=== PATIENT | female | born 1975 | race Caucasian/White ===

== ENCOUNTER 2021-09-15 07:08 | Outpatient (CLI) | payer OTHER, SELFPAY ==
--- NOTE | 2021-09-15 08:13 | W.ANESCHARGE ---
Anesthesia Charges Start Date/Time Anesthesia Start Date: 09/15/21 Anesthesia Start Time: 07:45 Stop Date/Time Anesthesia Stop Date: 09/15/21 Anesthesia Stop Time: 08:10 Summary Emergency: No
== END 2021-09-15 07:09 | disposition home or self-care (01) ==
LOC: OP CLINIC 07:09
PROVIDERS: PCP Physician Assistant Medical; Visit Provider Internal Medicine
DX: Z12.11 Encounter for screening for malignant neoplasm of colon (principal)
CPT/HCPCS: 45378; 812; J2704

== ENCOUNTER 2021-11-24 12:32 | Outpatient (REF) | payer OTHER, SELFPAY ==
[2021-11-24 14:01] LABS: Chloride* 105 mmol/L (96-114)
[2021-11-24 14:02] LABS: Potassium* 4.3 mmol/L (3.6-5.1); Sodium* 136 mmol/L (135-149)
[2021-11-24 14:04] LABS: Carbon Dioxide* 28 mmol/L (20-32); Cholesterol* 215 mg/dL (90-199)
[2021-11-24 14:05] LABS: Alanine Aminotransferase* 15 U/L (4-35); Alkaline Phosphatase* 61 U/L (40-150); Aspartate Amino Transferase* 25 U/L (12-35); Basophils Absolute Auto 0.04 K/uL (0.00-0.30); Basophils Percent Auto 0.9 % (0.0-3.0); Bilirubin Total* 0.4 mg/dL (0.1-1.5); Blood Urea Nitrogen* 15 mg/dL (5-24); Calcium* 9.6 mg/dL (8.4-10.6); Creatinine* 0.7 mg/dL (0.5-1.5); Eosinophils Absolute Auto 0.25 K/uL (0.00-0.50); Eosinophils Percent Auto 5.5 % (0.0-7.0); Estimated Glomerular Filt Rate 108 ml/min; Glucose* 104 mg/dL (60-115); Hematocrit 40.2 % (33.0-51.0); Hemoglobin* 13.4 gm/dL (12.0-16.0); Lymphocytes Absolute Auto 1.68 K/uL (0.90-2.90); Lymphocytes Percent Auto 36.8 % (20-44); Mean Corpuscular HGB Conc 33 gm/dL (32-36); Mean Corpuscular Hemoglobin 29 pg (26-34); Mean Corpuscular Volume 88 fL (80-100); Monocytes Percent Auto 7.7 % (0.0-11.0); Neutrophils Absolute Auto 2.24 K/uL (1.7-7.0); Neutrophils Percent Auto 49.1 % (42.0-72.0); Platelet Count* 262 K/uL (140-440); RDW Coefficient of Variation % 13.2 % (11.5-15.5); Red Blood Count 4.59 m/uL (4.00-5.20); Total Protein* 6.5 g/dL (6.0-8.3); Triglycerides* 69 mg/dL (40-149); White Blood Count* 4.56 K/uL (4.50-11.00)
[2021-11-24 14:06] LABS: HDL Cholesterol* 59 mg/dL (>=50); LDL Cholesterol Calculated 142 mg/dL (<100)
[2021-11-24 14:07] LABS: Slide Review Reflex No
[2021-11-24 14:12] LABS: Hemoglobin A1C* 5.31 % (0-5.6)
[2021-11-24 14:23] LABS: Free T4 Free Thyroxine* 0.84 ng/dL (0.70-1.85); Vitamin D 25 Hydroxy* 46 ng/mL (30-80)
[2021-11-24 14:36] LABS: Thyroid Stimulating Hormone* 0.849 uIU/mL (0.270-4.20)
== END 2021-11-24 12:33 | disposition home or self-care (01) ==
LOC: NPINS 12:32
PROVIDERS: PCP Physician Assistant Medical; Visit Provider Nurse Practitioner Psychiatric/Mental Health
DX: D64.9 Anemia, unspecified (principal); R53.83 Other fatigue; R23.2 Flushing; R32 Unspecified urinary incontinence; F41.9 Anxiety disorder, unspecified
CPT/HCPCS: 80053; 80061; 82306; 83036; 84439; 84443; 85025

== ENCOUNTER 2023-05-29 08:35 | Outpatient (CLI) | payer OTHER, SELFPAY ==
--- NOTE | 2023-05-29 08:45 | MM_ITS ---
Patient: AURELIA HERNANDEZ Facility:?[facility] Patient ID:?[id number] Site Patient ID:?[id number]. Site :?[id number] Study:?XRay-Breast Bilateral 3D W/CAD-05/29/2023 8:59:14 AM Ordering Physician:?Perla Ramos Final Report: BILATERAL SCREENING MAMMOGRAM WITH COMPUTER-AIDED DETECTION AND TOMOSYNTHESIS TECHNIQUE: CC and MLO views were obtained. These mammographic images have been obtained using full-field digital technique. These mammographic images were interpreted with the benefit of computer-aided detection. Breast Tomosynthesis was used in this interpretation. COMPARISON FILM: 09/02/20, 08/29/20, 03/05/19. FINDINGS: There are scattered areas of fibroglandular density IMPRESSION: There is no radiographic evidence for malignancy. ASSESSMENT: BI-RADS Category 1: Negative RECOMMENDATION: Routine screening mammogram in 1 year. A lay language report of this examination will be provided to the patient. Cb Hart M.D. Diagnostic Radiologist [email or web address] Transcribed: 12:04 p.an couch/Dictated by: Cb Hart MD @ 06/10/2023 9:56:00 AM Signed by:?Cb Hart MD @06/10/2023 12:12:22 PM (Electronic Signature)
== END 2023-05-29 08:36 | disposition home or self-care (01) ==
LOC: MAMMO 08:37
PROVIDERS: PCP Physician Assistant Medical; Visit Provider Physician Assistant Medical
DX: Z12.31 Encounter for screening mammogram for malignant neoplasm of breast (principal); Z11.3 Encounter for screening for infections with a predominantly sexual mode of transmission
CPT/HCPCS: 77063; 77067; 87491; 87591

== ENCOUNTER 2023-05-31 09:03 | Outpatient (CLI) | payer OTHER, SELFPAY | END 2023-05-31 09:04 | disposition home or self-care (01) | LOC: NFLDREF 13:23 | PROVIDERS: PCP Physician Assistant Medical; Referring Provider Physician Assistant Medical; Visit Provider Physician Assistant Medical | DX: E78.5 Hyperlipidemia, unspecified (principal); R53.83 Other fatigue; Z11.59 Encounter for screening for other viral diseases; Z13.228 Encounter for screening for other metabolic disorders; Z13.29 Encounter for screening for other suspected endocrine disorder; Z13.21 Encounter for screening for nutritional disorder | CPT/HCPCS: 80053; 80061; 82306; 82533; 82728; 84443; 86703; 86803 ==

== ENCOUNTER 2024-01-07 08:24 | Outpatient (CLI) | payer OTHER, SELFPAY | END 2024-01-07 08:25 | disposition home or self-care (01) | LOC: NFLDREF 01-09 10:58 | PROVIDERS: PCP Physician Assistant Medical; Referring Provider Physician Assistant Medical; Visit Provider Physician Assistant Medical | DX: N95.1 Menopausal and female climacteric states (principal); E55.9 Vitamin D deficiency, unspecified; Z78.9 Other specified health status | CPT/HCPCS: 82306; 82533 ==

== ENCOUNTER 2024-01-15 08:02 | Outpatient (CLI) | payer OTHER, SELFPAY ==
--- NOTE | 2024-01-15 08:15 | CRLHL7_ITS ---
For Patients: As a result of the Century Cures Act, medical imaging exams and procedure reports are released immediately into your electronic medical record. You may view this report before your referring provider. If you have questions, please contact your health care provider. INDICATION: Dizziness and giddiness. Evaluate for optic neuritis. TECHNIQUE: Brain scanned sagittal T1 axial FLAIR T2 diffusion-weighted and gadolinium enhanced axial T1 weighted images. Additional thin section axial and coronal T1-T2 stir and gadolinium enhanced fat saturated T1 weighted sequences are obtained through the orbits. 14 cc of Dotarem contrast utilized. COMPARISON: MRI brain with and without contrast dated 01/06/2010. FINDINGS: MRI brain: The lateral, 3rd and 4th ventricles are normal in size and shape. There is no evidence of recent ischemic infarction. There are no areas of diffusion restriction. There is no evidence of intracranial hemorrhage. There are no periventricular white matter lesions to suggest demyelinating disease. The brainstem and cerebellum appear normal. There are no enhancing intra-axial or extra-axial lesions. Paranasal sinuses and mastoid air cells are clear as visualized. MRI orbits: Thin section images show normal symmetric appearance of the orbital globes. The intraorbital portions of the optic nerves, optic chiasm, proximal optic tracts appear normal in signal intensity and morphology. No pathologic optic nerve enhancement seen. Orbital fat planes appear normal. Extraocular muscles normal. Cavernous sinus appears normal bilaterally. IMPRESSION: 1. Negative MRI brain. No evidence of acute infarction, intracranial hemorrhage, mass or cerebral demyelination. 2. Negative MRI exam of the orbits. No findings to suggest optic neuritis at this time. Dictated by Jose Luis Han MD @ 01/17/2024 6:03:02 AM (Electronically Signed)
== END 2024-01-15 08:03 | disposition home or self-care (01) ==
LOC: MRI 08:03
PROVIDERS: PCP Physician Assistant Medical; Visit Provider Physician Assistant Medical
DX: R42 Dizziness and giddiness (principal); R51.9 Headache, unspecified; G89.29 Other chronic pain; H53.9 Unspecified visual disturbance
CPT/HCPCS: 70543; A9575

== ENCOUNTER 2024-07-16 16:36 | Outpatient (CLI) | payer OTHER, SELFPAY ==
--- NOTE | 2024-07-16 16:45 | CRLHL7_ITS ---
For Patients: As a result of the Century Cures Act, medical imaging exams and procedure reports are released immediately into your electronic medical record. You may view this report before your referring provider. If you have questions, please contact your health care provider. Indication: CHRONIC SINUSITIS, HEADACHES SINCE BROKEN NOSE Technique: Performed without IV contrast Comparison: MRI 01/15/2024 Findings: Frontal sinuses: Clear. Ethmoid sinuses: Trace mucosal thickening noted with partial opacification of 1 of the right-sided ethmoid air cells. Maxillary sinuses: Trace mucosal thickening bilaterally involving the inferior aspects. The maxillary sinus drainage pathways are patent on both sides. Sphenoid sinuses: Clear, including both sphenoethmoidal recesses. Nasal Cavity: Leftward curvature of the nasal septum. Normal turbinates with the exception of mild paradoxical turn of the middle turbinates anteriorly. No vikram bullosa. Left-sided nasal septal spur. No TMJ abnormalities identified. The visualized portions of the orbits, intracranial contents and upper soft tissue neck are grossly negative. Normal alignment of nasal bones with slight offset on the left. Impression: 1. Trace bilateral ethmoid and maxillary sinus disease. 2. Leftward deviation of the nasal septum with left-sided nasal septal spur. 3. Old nondisplaced left nasal fracture. Please note that all CT scans at this facility use dose modulation, iterative reconstruction, and/or weight-based dosing when appropriate to reduce radiation dose to as low as reasonably achievable. Dictated by Cb Hart MD @ 07/17/2024 12:29:02 PM (Electronically Signed)
== END 2024-07-16 16:37 | disposition home or self-care (01) ==
LOC: CT 16:37
PROVIDERS: PCP Physician Assistant Medical; Visit Provider Otolaryngology
DX: J32.9 Chronic sinusitis, unspecified (principal); J32.0 Chronic maxillary sinusitis; J32.2 Chronic ethmoidal sinusitis; R51.9 Headache, unspecified; J34.2 Deviated nasal septum; S02.2XXS Fracture of nasal bones, sequela
CPT/HCPCS: 70486

== ENCOUNTER 2024-09-14 09:56 | Outpatient (CLI) | payer OTHER, SELFPAY | END 2024-09-14 09:57 | disposition home or self-care (01) | PROVIDERS: PCP Physician Assistant Medical; Visit Provider Physician Assistant Medical | DX: D64.9 Anemia, unspecified (principal); E78.5 Hyperlipidemia, unspecified; Z01.818 Encounter for other preprocedural examination | CPT/HCPCS: 80061; 82306 ==

== ENCOUNTER 2024-09-18 10:15 | Day surgery (SDC) | payer OTHER, SELFPAY ==
[2024-09-18] VITALS (21 sets, daily range): BP systolic 113–140; BP diastolic 82–98; PULSE 64–92; RESP 14–16; TEMP 36.1–36.6; O2SAT 96–99; BMI 25.2
[2024-09-18] MEDS: LACTATED RINGERS 1000 ML 1,000 ML 100 ML IV (10:20)
[2024-09-18 10:32] LABS: Ur HCG Qualitative* Negative (Negative)
[2024-09-18] MEDS: SODIUM CHLORIDE 0.9 % (FLUSH) 10 ML SYRINGE IVF (11:00)
[2024-09-18] MEDS: OXYMETAZOLINE 0.05% NASAL SPRAY 2 SPRAY NOSTRIL-B (12:07)
[2024-09-18] MEDS: BUPIVACAINE 0.5%/EPINEPHRINE 0.9 MG (30.9 ML) INJECTION (12:15)
[2024-09-18] MEDS: AYR SALINE NASAL GEL 1 APPLIC NOSTRIL-B (12:17)
[2024-09-18] MEDS: MUPIROCIN 1 GM PACKET 1 APPLIC TOPICAL (12:27)
--- NOTE | 2024-09-18 12:31 | P.ENTPROC_ITS ---
Procedure Note Date of procedure: 09/18/24 Procedure: Preop diagnosis nasal obstruction nasal headache deviated septum right middle inferior turbinate hypertrophy Postop diagnosis same Procedure nasal septoplasty, submucous partial resection right inferior turbinate Under general trach anesthesia patient was prepped draped usual fashion nose decongested injected. A stab incision was made anterior the right inferior turbinate a tunnel created with a Lori dissector. The vikram bone was outfractured and a conservative anterior submucous resection performed. The Coblation Wand was used for hemostasis and to cauterize intramurally along the inferior 10% The right middle turbinate was crushed with the Elrosa forceps The right marilyn-transfixion incision was made and left anterior and posterior tunnels were created. A vertical incision was made just anterior to the bone and a right posterior tunnel created. The posterior area 4 5 impaction was resected. A large piece of bone was trimmed returned to intraseptal space. The anterior septum was simply moved to midline. The hemitransfixion was closed with 2 4-0 chromic sutures, silastic stents were secured with 3-0 nylon, Merocel packing was placed above the stents on each side. The patient procedure well was taken recovery in satisfactory condition. Blood loss was less than 10 mL. Surgeon: Adama Kearney MD
--- NOTE | 2024-09-18 12:41 | P.ANES_ITS ---
Anesthesia Charges Start Date/Time Anesthesia Start Date: 09/18/24 Anesthesia Start Time: 12:02 Stop Date/Time Anesthesia Stop Date: 09/18/24 Anesthesia Stop Time: 12:40 Coding CPT Codes CPT Codes: ANESTH NOSE/SINUS SURGERY - 14246 ([id number]) P2 - PATIENT W/MILD SYST DISEASE, QK - RN BIRTHING 2-4 CNCRNT ANES PROC, QX - SENIOR NETWORK SECURITY ENGINEER SVC W/ MD MED DIRECTION
--- NOTE | 2024-09-18 12:41 | W.ANESCHARGE ---
Anesthesia Charges Start Date/Time Anesthesia Start Date: 09/18/24 Anesthesia Start Time: 12:02 Stop Date/Time Anesthesia Stop Date: 09/18/24 Anesthesia Stop Time: 12:40 Coding CPT Codes CPT Codes: ANESTH NOSE/SINUS SURGERY - 11487 ([id number]) P2 - PATIENT W/MILD SYST DISEASE, QK - LEASE ANALYST 2-4 CNCRNT ANES PROC, QX - SHOOTER'S HELPER SVC W/ MD MED DIRECTION
--- NOTE | 2024-09-18 12:46 | P.ANES_ITS ---
Anesthesia Charges Start Date/Time Anesthesia Start Date: 09/18/24 Anesthesia Start Time: 12:02 Stop Date/Time Anesthesia Stop Date: 09/18/24 Anesthesia Stop Time: 12:40 Coding CPT Codes CPT Codes: ANESTH NOSE/SINUS SURGERY - 84746 ([id number]) QK - MANAGER STEEL 2-4 CNCRNT ANES PROC, QX - DIRECTOR EQUIPMENT SVC W/ MD MED DIRECTION, P2 - PATIENT W/MILD SYST DISEASE
--- NOTE | 2024-09-18 12:46 | W.ANESCHARGE ---
Anesthesia Charges Start Date/Time Anesthesia Start Date: 09/18/24 Anesthesia Start Time: 12:02 Stop Date/Time Anesthesia Stop Date: 09/18/24 Anesthesia Stop Time: 12:40 Coding CPT Codes CPT Codes: ANESTH NOSE/SINUS SURGERY - 18413 ([id number]) QK - CHANNEL LIP STIFFENER INSOLES 2-4 CNCRNT ANES PROC, QX - CERTIFIED TRAVEL COUNSELOR SVC W/ MD MED DIRECTION, P2 - PATIENT W/MILD SYST DISEASE
--- NOTE | 2024-09-18 12:56 | SUR.PHASEI ---
patient noted to have headache, burning of bilateral eyes, red rash on eyes, lips and forehead. NUCLEAR MEDICINE OFFICERHomar notified and gave verbal order for 25mg of Benadryl and to monitor patient. vitals stable.
[2024-09-18] MEDS: ACETAMINOPHEN INJ 1,000 MG/100 ML VIAL 400 MG IVPB (13:23)
--- NOTE | 2024-09-18 13:25 | SUR.PHASEI ---
verbal order IV tylenol 1000mg/100ml from CHELLE Lemon for patient's headache and second dose 25mg of Benadryl for allergic reaction.
--- NOTE | 2024-09-18 13:44 | SUR.PHASEI ---
redness to forehead and lips noted to be gone. redness to eyes remain burning reduced slightly. REGIONAL BUSINESS MANAGER approved to discharge to same day and continue to monitor for signs and symptoms allegoric reaction there.
== END 2024-09-18 15:53 | disposition home or self-care (01) ==
LOC: OR 10:15
PROVIDERS: Anesthesiology; PCP Physician Assistant Medical; Visit Provider Otolaryngology
PROC: (CPT 30520; principal; 2024-09-18 11:15)
DX: J34.2 Deviated nasal septum (principal); J34.3 Hypertrophy of nasal turbinates; R51.9 Headache, unspecified; J34.89 Other specified disorders of nose and nasal sinuses
CPT/HCPCS: 30520; 30140; 00160; 81025; A9270; J0131; J0330; J1100; J1200; J2405; J2704; J3010; J7120

== ENCOUNTER 2024-09-28 10:16 | Outpatient (CLI) | payer OTHER, SELFPAY ==
--- NOTE | 2024-09-28 10:15 | CRLHL7_ITS ---
For Patients: As a result of the Century Cures Act, medical imaging exams and procedure reports are released immediately into your electronic medical record. You may view this report before your referring provider. If you have questions, please contact your health care provider. CLINICAL HISTORY: Excessive and frequent menstruation TECHNIQUE: Real time, solorio scale images were acquired of the pelvis using a transabdominal and transvaginal approach. Color Doppler analysis was performed of the ovaries. FINDINGS: The uterus appears unremarkable and measures 9.6 x 4 x 5 centimeters. The endometrium measures 9 millimeters. The endometrium is heterogeneous in appearance. Ovaries are unremarkable. Right ovary measures 3 x 1.3 x 1.7 centimeters Left ovary measures 3.5 x 2.5 x 2.6 centimeters. Normal blood flow to both ovaries. IMPRESSION: 1. 9 millimeter endometrium heterogeneous in appearance would recommend direct visualization. Dictated by Jessica Nice MD @ 10/01/2024 12:15:27 PM (Electronically Signed)
== END 2024-09-28 10:17 | disposition home or self-care (01) ==
LOC: US 10:16
PROVIDERS: PCP Physician Assistant Medical; Visit Provider Physician Assistant Medical
DX: N92.0 Excessive and frequent menstruation with regular cycle (principal); R93.89 Abnormal findings on diagnostic imaging of other specified body structures
CPT/HCPCS: 76830; 76856

== ENCOUNTER 2024-10-19 13:04 | Outpatient (CLI) | payer OTHER, SELFPAY ==
--- NOTE | 2024-10-19 13:20 | CRLHL7_ITS ---
For Patients: As a result of the Century Cures Act, medical imaging exams and procedure reports are released immediately into your electronic medical record. You may view this report before your referring provider. If you have questions, please contact your health care provider. INDICATION: BILATERAL SCREENING MAMMOGRAM, ASYMPTOMATIC 49 Y/O FEMALE COMPARISON: 05/29/2023, 09/02/2020, 03/05/2019 TECHNIQUE: Digital mammogram in CC and MLO projections including computer-aided detection (CAD) and tomosynthesis. BREAST COMPOSITION: There are scattered areas of fibroglandular density. FINDINGS: No suspicious findings. ASSESSMENT: BI-RADS 2 Benign RECOMMENDATION: Annual screening mammogram. A lay language report of this examination will be provided to the patient. Dictated by: lEo Robles MD @ 10/20/2024 10:41:54 (Electronically Signed)
== END 2024-10-19 13:05 | disposition home or self-care (01) ==
LOC: MAMMO 13:04
PROVIDERS: PCP Physician Assistant Medical; Visit Provider Physician Assistant Medical
DX: Z12.31 Encounter for screening mammogram for malignant neoplasm of breast (principal)
CPT/HCPCS: 77063; 77067

== ENCOUNTER 2024-10-21 13:39 | Outpatient (CLI) | payer OTHER, SELFPAY | END 2024-10-21 13:40 | disposition home or self-care (01) | PROVIDERS: PCP Physician Assistant Medical; Visit Provider Obstetrics & Gynecology | DX: N92.6 Irregular menstruation, unspecified (principal); D64.9 Anemia, unspecified; Z01.812 Encounter for preprocedural laboratory examination | CPT/HCPCS: 82607; 82728; 82746; 83540; 83550; 84146; 84443 ==

== ENCOUNTER 2025-01-04 14:33 | Outpatient (CLI) | payer OTHER, SELFPAY | END 2025-01-04 14:34 | disposition home or self-care (01) | LOC: LKVREF 14:35 | PROVIDERS: PCP Physician Assistant Medical; Visit Provider Physician Assistant Medical | DX: D64.9 Anemia, unspecified (principal) | CPT/HCPCS: 82728 ==

== ENCOUNTER 2025-01-06 06:05 | Day surgery (SDC) | payer OTHER, SELFPAY ==
[2025-01-06 06:28] VITALS: BMI 26.7
[2025-01-06 06:34] VITALS: BP 117/80; PULSE 67; RESP 16; TEMP 36.2; O2SAT 93
[2025-01-06 06:58] LABS: Ur HCG Qualitative* Negative (Negative)
[2025-01-06] MEDS: LACTATED RINGERS 1000 ML 1,000 ML 100 ML IV (06:58)
[2025-01-06] MEDS: SODIUM CHLORIDE 0.9 % (FLUSH) 10 ML SYRINGE IVF (06:59)
--- NOTE | 2025-01-06 07:13 | W.PM.H&PU ---
History & Physical Update History & Physical Update H&P Reviewed and patient assessed: No changes noted H&P Updates: Currently on her menstrual cycle.
--- NOTE | 2025-01-06 08:11 | P.ANES_ITS ---
Anesthesia Charges Start Date/Time Anesthesia Start Date: 01/06/25 Anesthesia Start Time: 07:15 Stop Date/Time Anesthesia Stop Date: 01/06/25 Anesthesia Stop Time: 08:07 Coding CPT Codes CPT Codes: ANESTH HYSTEROSCOPE/GRAPH - 16167 ([id number]) P2 - PATIENT W/MILD SYST DISEASE, QK - BUSINESS RELATIONSHIP MANAGER 2-4 CNCRNT ANES PROC, QX - ENROLLMENT MANAGEMENT DIRECTOR SVC W/ MD MED DIRECTION
--- NOTE | 2025-01-06 08:11 | W.ANESCHARGE ---
Anesthesia Charges Start Date/Time Anesthesia Start Date: 01/06/25 Anesthesia Start Time: 07:15 Stop Date/Time Anesthesia Stop Date: 01/06/25 Anesthesia Stop Time: 08:07 Coding CPT Codes CPT Codes: ANESTH HYSTEROSCOPE/GRAPH - 04916 ([id number]) P2 - PATIENT W/MILD SYST DISEASE, QK - NUCLEAR OPERATIONS SPECIALIST 2-4 CNCRNT ANES PROC, QX - OPTICAL ENGINEER SVC W/ MD MED DIRECTION
[2025-01-06 08:12] VITALS: BP 108/64; PULSE 78; RESP 16; TEMP 36.8; O2SAT 97
--- NOTE | 2025-01-06 08:13 | PM.GYNPRHA ---
Procedure Pre-op/Post-op diagnoses: Pre-Op/Post-Op Diagnoses Operation Date: 01/06/25 07:15 <No data on this case meets the specified criteria> Procedure: Procedures Operation Date: 01/06/25 07:15 Actual Procedure Side Surgeon p Hysteroscopy, Dilation, Curettage, Polypectomy, Endometrial Ablation Kenzie Sood MD Narrative: Preoperative diagnosis: Kiara is a 49 yo with abnormal uterine bleeding/ heavy menstrual bleeding. Postoperative diagnosis: Same. Likely polyps Procedure: Hysteroscopy, dilation and curettage, polypectomy, endometrial ablation. Anesthesia: Mac and paracervical block. Surgeon: Kenzie Sood MD Estimated blood loss: <5 mL IV Fluid: 600 mL UOP: 500 mL Fluid deficit: 145 cc, and total fluid used for hysteroscopy: 735 cc Specimen: Endometrial curetting, possible polyps, sent to path. Findings: On exam under anesthesia: The cervix and vagina appear normal. The uterus was anteverted position, approximately 7 week size, mobile and without masses or nodularity palpable. Adnexa were without mass or fullness palpable bilaterally. On hysteroscopy: Fluffy, menstrual tissue. Possible polyps underneath menstrual tissue. No other abnormalities noted. The uterus sounded to 9 cm. Cervical length 4 cm. Cavity length: 5 cm. Procedure: Kiara was taken to the operating room where conscious sedation was found to be adequate. She was placed in a dorsal lithotomy position and an exam under anesthesia was performed with the findings stated above. She was then prepped and draped in a normal sterile manner. Bladder was drained with straight cath. An a bivalve is sterile speculum was placed in the vaginal canal. A paracervical block was placed using 1% lidocaine with epinephrine: 5 mL were injected at the 4 and 8 o'clock positions on the cervix. A long Allis clamp was placed on the anterior lip of the cervix. The cervix was then dilated to Hegar 6. Uterus sounded to 9 cm. The cervix measured 4 cm. There for the cavity length was 5 cm. The Truclear hysteroscope was advanced into the uterus. A operative hysteroscopy performed with normal saline as the insufflation medium. Findings are stated above. The Truclear incisor was then advanced into the camera. And global curettage and polypectomy was performed with this incisor. The cavity appeared normal once the curettage was completed. The hysteroscope was removed. The cervix was then dilated to Hegar 8. The Inna device was advanced into the uterus. The cavity check was completed, and the ablation took place over 2 min. The Inna was removed, the hysteroscope readvanced to document ablation of the entire cavity. The hysteroscope was then removed. The Allis clamp removed from the anterior lip of the cervix. Nothing was used to obtain hemostasis. The patient tolerated this procedure well. Sponge, lap and instrument counts were correct x2 at the end of the procedure and the patient was taken to the recovery area in stable condition. Complication: None Surgical debrief performed and specimen reviewed.
[2025-01-06 08:30] VITALS: BP 108/68; PULSE 69; RESP 16; O2SAT 97
[2025-01-06 08:45] VITALS: BP 99/60; PULSE 65; RESP 16; O2SAT 96
[2025-01-06 09:01] VITALS: BP 100/58; PULSE 67; RESP 16; O2SAT 96
[2025-01-06 09:16] VITALS: BP 108/74; PULSE 70; RESP 16; O2SAT 98
--- NOTE | 2025-01-06 09:44 | P.ANES_ITS ---
Anesthesia Charges Start Date/Time Anesthesia Start Date: 01/06/25 Anesthesia Start Time: 07:15 Stop Date/Time Anesthesia Stop Date: 01/06/25 Anesthesia Stop Time: 08:07 Coding CPT Codes CPT Codes: ANESTH HYSTEROSCOPE/GRAPH - 91032 ([id number]) P2 - PATIENT W/MILD SYST DISEASE, QK - TEACHER DRAMA 2-4 CNCRNT ANES PROC, QX - HOSPITALITY RECRUITER SVC W/ MD MED DIRECTION
--- NOTE | 2025-01-06 09:44 | W.ANESCHARGE ---
Anesthesia Charges Start Date/Time Anesthesia Start Date: 01/06/25 Anesthesia Start Time: 07:15 Stop Date/Time Anesthesia Stop Date: 01/06/25 Anesthesia Stop Time: 08:07 Coding CPT Codes CPT Codes: ANESTH HYSTEROSCOPE/GRAPH - 47524 ([id number]) P2 - PATIENT W/MILD SYST DISEASE, QK - ORACLE DATABASE MANAGER 2-4 CNCRNT ANES PROC, QX - SALES TRAINER SVC W/ MD MED DIRECTION
== END 2025-01-06 09:39 | disposition home or self-care (01) ==
PROVIDERS: PCP Physician Assistant Medical; Visit Provider Obstetrics & Gynecology
PROC: 0UF98ZZ Fragmentation in Uterus, Via Natural or Artificial Opening Endoscopic (ICD-10-PCS; CPT 58563; principal; 2025-01-06 07:15)
DX: N93.8 Other specified abnormal uterine and vaginal bleeding (principal); N92.0 Excessive and frequent menstruation with regular cycle; D64.9 Anemia, unspecified
CPT/HCPCS: 58563; 00952; 36415; 81025; 86850; 86900; 86901; C1782; J1100; J2250; J2405; J2704; J3010; J3490; J7120